=== PATIENT | male | born 1970 | race African-American/Black ===

== ENCOUNTER 2024-12-06 15:27 | Emergency (ER) | payer OTHER ==
[~2024-12-06] VITALS: Ht 177.8 cm; Wt 82.0 kg
[~2024-12-06 15:27] MED LIST: AMI2 PO; ASPI-1406 PO; ATOR40TA70 PO; CLOP-31 PO; CYCL10TA21 PO; EMPA10TA PO; FERR-63 PO; GABA-529 PO; METF-414 PO
[2024-12-06 15:33] VITALS: O2SAT 96
[2024-12-06] MEDS: CALCIUM GLUCONATE 1GM PREMIX 50 ML IV NR (16:14)
[2024-12-06] MEDS: FUROSEMIDE 40MG/4ML VIAL IVP NR (16:38)
[2024-12-06 17:24] VITALS: TEMP 36.9; O2SAT 98
[2024-12-06 17:41] LABS: INR 1.1
[2024-12-06 17:43] LABS: CREATININE 1.9 mg/dL (0.6-1.3)
[2024-12-06 17:44] LABS: UREA NITROGEN BLOOD 35 mg/dL (9-23)
[2024-12-06 17:45] LABS: ASPARTATE AMINOTRANSFERASE 18 IU/L (<34)
[2024-12-06 17:46] LABS: BILIRUBIN DIRECT 0.2 mg/dL (<=3.0)
[2024-12-06 17:47] LABS: BILIRUBIN TOTAL 0.4 mg/dL (0.1-1.0); PROTEIN TOTAL 6.8 g/dL (6.0-8.3)
[2024-12-06 17:49] VITALS: BP 120/63; PULSE 83; RESP 20; TEMP 98.42
[2024-12-06 17:55] LABS: TROPONIN I HIGH SENSITIVITY 73 ng/L (3.0-53)
[2024-12-06] MEDS: ASPIRIN 325MG EC TABLET PO ONE (18:21)
[2024-12-06 18:22] LABS: CLARITY URINE CLEAR (CLEAR); COLOR URINE YELLOW (YELLOW); GLUCOSE URINE NEGATIVE (NEGATIVE); KETONES URINE NEGATIVE (NEGATIVE); LEUKOCYTE ESTERASE URINE NEGATIVE (NEGATIVE); NITRITE URINE NEGATIVE (NEGATIVE); OCCULT BLOOD URINE NEGATIVE (NEGATIVE); PH URINE 6.5 (4.5-8.0); PROTEIN URINE NEGATIVE (NEGATIVE); SPECIFIC GRAVITY URINE 1.008 (1.005-1.030); UROBILINOGEN URINE 0.2 E.U./dL (0.2-1.0)
[2024-12-06 21:47] LABS: MEAN PLATELET VOLUME 8.5 fl (7.4-10.4); PLATELET 477 x1000/uL (130-400); RED BLOOD CELL COUNT 3.40 mill/uL (4.7-6.1); RED CELL DISTRIBUTION WIDTH 34.3 % (11.6-14.6)
[2024-12-06 21:56] LABS: HEMOGLOBIN. 6.2 g/dL (14.0-18.0)
[2024-12-06 21:57] LABS: HEMATOCRIT. 20.7 % (42.0-52.0)
[2024-12-06 22:36] LABS: BAND% 1.0 % (1.0-6.0); EOSINOPHILS % MANUAL 1.0 % (0.0-5.0); LYMPHOCYTES % MANUAL 21.0 % (20.0-50.0); MONOCYTES % MANUAL 7.0 % (2.0-8.0); NEUTROPHILS % MANUAL 70.0 % (45.0-75.0); PLATELET ESTIMATE INCREASED
[2024-12-07] MEDS ORDERED: FURO-151 PO (01:50)
[2024-12-07] MEDS ORDERED: SPIR25TA6 MT (17:04)
[2024-12-07] MEDS ORDERED: FURO40TA5 PO (17:04)
[2024-12-07] MEDS ORDERED: LOSA25TA26 MT (17:04)
[2024-12-07] MEDS ORDERED: FERR-63 PO (17:04)
[2024-12-07] MEDS ORDERED: COR3 PO (17:04)
[2024-12-07] MEDS ORDERED: INSU100I28 SQ (17:08)
== END 2024-12-06 19:14 | disposition left against medical advice (07) ==
LOC: ER 15:27 → EDBEDREQ 18:14 → EDBEDREQTM 18:14 → ENRESERV 18:27 → CANRESERV 18:27 → CANBEDREQ 18:55 → ER 19:14
DX: I21.4 Non-ST elevation (NSTEMI) myocardial infarction (principal); I50.9 Heart failure, unspecified; J44.89 Other specified chronic obstructive pulmonary disease; Z79.899 Other long term (current) drug therapy; Z79.82 Long term (current) use of aspirin
CPT/HCPCS: 80076; 80048; 81003; 83880; 83690; 83735; 85025; 85379; 85610; 85730; 84484; 36415; 71045; 93005; 96365; 96375; 99291; 99292; J0610; J1938; Z7610 ×2

== ENCOUNTER 2024-12-06 19:15 | Inpatient (IN) | payer OTHER ==
[~2024-12-06] VITALS: Ht 172.7 cm; Wt 83.9 kg
[2024-12-06 01:00] VITALS: BP 123/84; PULSE 79; RESP 20; TEMP 37.3; O2SAT 98
[2024-12-06 19:21] VITALS: O2SAT 98
[2024-12-06 22:23] LABS: MEAN PLATELET VOLUME 8.6 fl (7.4-10.4); PLATELET 501 x1000/uL (130-400); RED BLOOD CELL COUNT 3.39 mill/uL (4.7-6.1); RED CELL DISTRIBUTION WIDTH 34.4 % (11.6-14.6)
[2024-12-06 22:27] LABS: HEMATOCRIT. 21.4 % (42.0-52.0)
[2024-12-06 22:28] LABS: HEMOGLOBIN. 6.2 g/dL (14.0-18.0)
[2024-12-06 22:33] LABS: CLARITY URINE CLEAR (CLEAR); COLOR URINE YELLOW (YELLOW); GLUCOSE URINE NEGATIVE (NEGATIVE); KETONES URINE NEGATIVE (NEGATIVE); LEUKOCYTE ESTERASE URINE NEGATIVE (NEGATIVE); NITRITE URINE NEGATIVE (NEGATIVE); OCCULT BLOOD URINE 2+ (NEGATIVE); PH URINE 6.0 (4.5-8.0); PROTEIN URINE NEGATIVE (NEGATIVE); SPECIFIC GRAVITY URINE 1.007 (1.005-1.030); UROBILINOGEN URINE 0.2 E.U./dL (0.2-1.0)
[2024-12-06 22:34] LABS: CREATININE 1.9 mg/dL (0.6-1.3); UREA NITROGEN BLOOD 35.0 mg/dL (9-23)
[2024-12-06 22:46] LABS: TROPONIN I HIGH SENSITIVITY 76.0 ng/L (3.0-53)
[2024-12-06 22:56] LABS: LYMPHOCYTES % MANUAL 25.0 % (20.0-50.0); MONOCYTES % MANUAL 8.0 % (2.0-8.0); NEUTROPHILS % MANUAL 67.0 % (45.0-75.0); PLATELET ESTIMATE MARKEDLY INCREASED
[2024-12-06 23:24] LABS: BACTERIA URINE TRACE; SQUAMOUS EPITHELIAL CELL URINE RARE /lpf (RARE/1+); WBC URINE 0-2 /hpf (0-2)
[2024-12-06] MEDS: FUROSEMIDE 40MG TABLET PO ONE (23:45)
[2024-12-06] MEDS: ASPIRIN 325MG EC TABLET PO ONE (23:45)
[2024-12-07 00:55] VITALS: BP 123/84; PULSE 79; RESP 20; TEMP 37.3076
[2024-12-07 01:00] VITALS: BP 123/84; PULSE 79; RESP 20; TEMP 37.3; O2SAT 98
[2024-12-07] MEDS ORDERED: FURO-151 PO (01:50)
[2024-12-07] MEDS ORDERED: DEXTROSE 50% WATER 50ML SYRINGE IV PRN (02:15)
[2024-12-07] MEDS ORDERED: NALOXONE HCL 0.4MG/ML VIAL IV PRN (02:30)
[2024-12-07 04:00] VITALS: BP 129/79; PULSE 89; RESP 20; TEMP 37; O2SAT 98
[2024-12-07] MEDS: HYDROCODONE/ACETAMINOPHEN 5/325MG TABLET PO PRN (05:15)
[2024-12-07] MEDS: BLOOD SUGAR DIAGNOSTIC STRIP TEST SCH (06:34)
[2024-12-07] MEDS: INSULIN LISPRO 100 UNITS/ML SUBCUT SCH (06:46)
[2024-12-07 06:58] LABS: *AMPHETAMINES SCREEN URINE NEGATIVE (NEGATIVE); *BARBITURATES SCREEN URINE NEGATIVE (NEGATIVE); *BENZODIAZEPINES SCREEN URINE NEGATIVE (NEGATIVE); *COCAINE SCREEN URINE NEGATIVE (NEGATIVE); METHADONE URINE SCREEN NEGATIVE (NEGATIVE)
[2024-12-07 06:59] LABS: CANNABINOID URINE SCREEN PRESUMPTIVE POSITIVE (NEGATIVE); ECSTASY MDMA SCREEN URINE NEGATIVE (NEGATIVE); OPIATES URINE SCREEN NEGATIVE (NEGATIVE); PHENCYCLIDINE URINE SCREEN NEGATIVE (NEGATIVE)
[2024-12-07 08:00] VITALS: BP 112/61; PULSE 74; RESP 20; TEMP 36.5; O2SAT 100
[2024-12-07] MEDS: CARVEDILOL 3.125 MG TABLET PO SCH (09:35)
[2024-12-07] MEDS: LOSARTAN 50 MG TABLET PO SCH (09:35)
[2024-12-07] MEDS: FUROSEMIDE 40MG TABLET PO SCH ×2 (09:35→16:05)
[2024-12-07 15:59] LABS: PLATELET 448 x1000/uL (130-400); RED BLOOD CELL COUNT 3.64 mill/uL (4.7-6.1); RED CELL DISTRIBUTION WIDTH 34.3 % (11.6-14.6)
[2024-12-07 16:00] VITALS: BP 118/66; PULSE 75; RESP 18; TEMP 36.6; O2SAT 98
[2024-12-07] MEDS ORDERED: FUROSEMIDE 40MG TABLET PO ONE (16:00)
[2024-12-07 16:04] LABS: CREATININE 1.7 mg/dL (0.6-1.3)
[2024-12-07 16:05] LABS: LDL CHOLESTEROL 69 mg/dL (5-100); TRIGLYCERIDE 51 mg/dL (0-150); UREA NITROGEN BLOOD 33 mg/dL (9-23)
[2024-12-07] MEDS: FAMOTIDINE 20MG/2ML VIAL IV NR (16:05)
[2024-12-07 16:09] LABS: ASPARTATE AMINOTRANSFERASE 18 IU/L (<34); BILIRUBIN DIRECT 0.2 mg/dL (<=3.0); BILIRUBIN TOTAL 0.5 mg/dL (0.1-1.0); PROTEIN TOTAL 6.4 g/dL (6.0-8.3)
[2024-12-07 16:11] LABS: FOLIC ACID (FOLATE) SERUM 19.00 ng/mL (>5.38); VITAMIN B12 SERUM 632 pg/mL (211-911)
[2024-12-07 16:45] LABS: HEPATITIS C AB NON REACTIVE (Neg) (Negative)
[2024-12-07] MEDS ORDERED: FURO40TA5 PO (17:04)
[2024-12-07] MEDS ORDERED: LOSA25TA26 MT (17:04)
[2024-12-07] MEDS ORDERED: COR3 PO (17:04)
[2024-12-07] MEDS ORDERED: SPIR25TA6 MT (17:04)
[2024-12-07] MEDS ORDERED: FERR-63 PO (17:04)
[2024-12-07] MEDS ORDERED: INSU100I28 SQ (17:08)
[2024-12-08] MEDS: FUROSEMIDE 40MG TABLET PO SCH (07:15)
[2024-12-08 08:00] VITALS: BP 117/75; PULSE 73; RESP 16; TEMP 36.7; O2SAT 96
[2024-12-08] MEDS: FAMOTIDINE 20MG/2ML VIAL IV SCH (09:00)
[2024-12-08 10:54] VITALS: BP 117/75; PULSE 73; RESP 20; TEMP 98
== END 2024-12-08 15:43 | disposition home or self-care (01) | DRG 663 ==
LOC: ER 19:15 → 8WST 23:15 → EDBEDREQ 23:19 → EDBEDREQTM 23:19 → ENRESERV 23:59
PROVIDERS: ADMIT Internal Medicine; ATTEND Internal Medicine
PROC: 30233N1 Transfusion of Nonautologous Red Blood Cells into Peripheral Vein, Percutaneous Approach (ICD-10-PCS; principal; 2024-12-06)
DX: D50.9 Iron deficiency anemia, unspecified (principal); N17.0 Acute kidney failure with tubular necrosis; I50.23 Acute on chronic systolic (congestive) heart failure; E11.9 Type 2 diabetes mellitus without complications; J44.89 Other specified chronic obstructive pulmonary disease; D75.839 Thrombocytosis, unspecified; F17.210 Nicotine dependence, cigarettes, uncomplicated; I11.0 Hypertensive heart disease with heart failure; Z95.1 Presence of aortocoronary bypass graft; Z91.148 Patient's other noncompliance with medication regimen for other reason
CPT/HCPCS: 36415; 71045; 80048; 80061; 80076; 80305; 81003; 82248; 82607; 82746; 82962; 83036; 83540; 83550; 83735; 83880; 84207; 84484; 85025; 85027; 85044; 86705; 86850; 86900; 86920; 87340; 99285; J1308; J1815; P9016